=== PATIENT | male | born 1980 | race Caucasian/White ===

== ENCOUNTER 2017-08-29 06:04 | Emergency (ER) | payer SELFPAY ==
[~2017-08-29] VITALS: Ht 180.3 cm; Wt 68.0 kg
[2017-08-29] MEDS ORDERED: KETOROLAC 60MG/2ML VIAL IM ONE (06:45)
[2017-08-29] MEDS ORDERED: HYDROCORTISONE ACETATE 25MG SUPP PR ONE (06:45)
[2017-08-29 06:54] VITALS: BP 125/77
== END 2017-08-29 07:19 | disposition home or self-care (01) ==
LOC: ER 06:04
DX: K64.4 Residual hemorrhoidal skin tags (principal); K64.8 Other hemorrhoids
CPT/HCPCS: 96372; 99283; J1885